=== PATIENT | female | born 1960 | race Caucasian/White ===

== ENCOUNTER 2024-01-06 15:29 | Emergency (ER) | payer OTHER ==
[2024-01-06 15:45] VITALS: RESP 16; TEMP 98.6; BMI 25.2
[2024-01-06] MEDS ORDERED: ACETAMINOPHEN 500 MG TABLET (FP) ONE (16:46)
[2024-01-06] MEDS: ACETAMINOPHEN 500 MG TABLET (FP) PO ONE (16:49)
[2024-01-06 17:02] LABS: INR 1.08 (0.83-1.09); PROTHROMBIN TIME (PATIENT) 12.5 SEC (9.7-13.0)
[2024-01-06 17:03] LABS: BASO % 0.7 % (0-2.0); EOS % 1.3 % (0-4.5); HEMATOCRIT 38.8 % (32.4-45.2); HEMOGLOBIN 12.7 GM/dL (10.7-15.3); LYMPH % 34.1 % (8-40); MCH 29.8 pg (25.7-33.7); MCHC 32.7 g/dl (32.0-36.0); MEAN CELL VOLUME 90.9 fl (80-96); MEAN PLT VOLUME 7.8 fl (7.5-11.1); NEUT % 58.9 % (42.8-82.8); PLATELET COUNT 247 10^3/uL (134-434); RBC 4.27 M/mm3 (3.60-5.2); RDW 14.4 % (11.6-15.6); WHITE BLOOD COUNT 5.7 K/mm3 (4.0-10.0)
[2024-01-06 17:05] LABS: ACTIVATED PTT 28.4 SECONDS (25.2-36.5)
[2024-01-06 17:19] LABS: POTASSIUM 4.7 mmol/L (3.5-5.1)
[2024-01-06 17:21] LABS: ALBUMIN 3.5 g/dl (3.4-5.0); BLOOD UREA NITROGEN 22.5 mg/dL (7-18); CALCIUM 8.7 mg/dL (8.5-10.1); MAGNESIUM 2.6 mg/dL (1.8-2.4)
[2024-01-06 17:25] LABS: CREATININE 0.8 mg/dL (0.55-1.3)
[2024-01-06 17:27] LABS: BILIRUBIN,TOTAL 0.3 mg/dL (0.2-1); TOT PROT 6.7 g/dl (6.4-8.2)
[2024-01-06 17:43] VITALS: BP 127/70; PULSE 88
== END 2024-01-06 18:14 | disposition home or self-care (01) ==
LOC: JER 15:29
DX: M79.602 Pain in left arm (principal)
CPT/HCPCS: 36415; 80053; 82310; 83735; 83970; 84443; 84484; 85025; 85610; 85730; 93005; 93010; 99284-25